=== PATIENT | female | born 1990 | race Caucasian/White ===

== ENCOUNTER 2022-04-19 20:02 | Emergency (ER) | payer SELFPAY ==
[2022-04-19 20:03] VITALS: BP 105/72; PULSE 128; RESP 16; TEMP 36.7; O2SAT 100; BMI 19.5
[2022-04-19 20:04] VITALS: BP 105/72; PULSE 128; RESP 16; TEMP 36.7; O2SAT 100
--- NOTE | 2022-04-19 20:16 | CT_ITS ---
STUDY: CT Abdomen And Pelvis W/O Contrast Injection 04/19/2022 9:45 PM REASON FOR EXAM: Female, 32 years old. ABDOMINAL PAIN Pain, neg hcg, gerneralized abd pain x 1 week, cramping TECHNIQUE: Transaxial images were obtained without oral contrast, and without intravenous contrast. Individualized dose optimization techniques were used for this CT. COMPARISON: None. FINDINGS: The visualized lung bases are unremarkable. The visualized portions of the heart are within normal limits. Unremarkable liver. Unremarkable gallbladder and extrahepatic biliary system. Unremarkable spleen. Unremarkable pancreas. Unremarkable bilateral adrenal glands. No acute findings of the right kidney. No acute findings of the left kidney. Unremarkable visualized stomach. Unremarkable small intestine. Unremarkable colon. The appendix is visualized and appears unremarkable. There are no acute findings of the abdominal aorta. Unremarkable inferior vena cava. Subcentimeter mesenteric lymph nodes. Unremarkable urinary bladder. Unremarkable abdominal wall. Unremarkable osseous structures. CT/Abdomen/Pelvis without Cont IMPRESSION: (NOT LISTED IN ORDER OF SIGNIFICANCE) There are no acute findings. Other findings as above. Electronically Signed: Marcelo Mata MD at 21:46 EDT ,
--- NOTE | 2022-04-19 20:17 | EDS_ITS ---
HPI HPI - GI History of Present Illness Chief Complaint: Abd Pain Narrative Narrative: Patient presents with her mother for periumbilical pain, nausea, and vomiting, then 4 AM, approximately 6 hours ago. She states that through the years she has had problems with abdominal pain. Her mother states that she has been diagnosed with gastritis previously. She has had upper GI studies and they say that her stomach is inflamed but do not find anything else. She began having periumbilical abdominal pain along with nausea and vomiting. She states that she vomits every few minutes without any blood in her emesis. She has not really having problems with stool, no diarrhea or constipation. No previous abdominal surgeries. No fevers but she feels chilled. No dysuria or hematuria. She states she is had to come to the emergency department previously and usu ally gets diagnosed with gastritis. She did take rectal suppositories for her nausea which has improved it moderately. PFSH PFSH Medical History no medical history Home Medications dicyclomine 20 mg PO TID PRN #20 tab 04/19/22 [Rx Last Taken Unknown] esomeprazole magnesium [Nexium] 40 mg PO DAILY #14 cap 04/19/22 [Rx Last Taken Unknown] ondansetron 4 mg PO Q6H PRN #12 tab 04/19/22 [Rx Last Taken Unknown] Allergy/AdvReac Type Severity Reaction Status Date / Time No Known Allergies Allergy Verified 04/19/22 20:02 Social History Smoking Status: Never smoker ROS ROS ED ROS Narrative Constitutional: No fever, positive chills. HEENT: No sore throat. No neck pain. No loss of vision. No rhinorrhea. Cardiovascular: No chest pain. No palpitations. No pedal edema. Respiratory: No cough, no shortness of breath. Abdominal: Periumbilical abdominal pain. Positive improving nausea. Multiple episodes of nonbloody vomiting. Genitourinary: No dysuria. No hematuria. Musculoskeletal: Diffuse myalgias. No arthralgias. Neurologic: No headaches. No dizziness. No lightheadedness. Skin: No rash. No change in color. Psychiatric: No depression. No anxiety. EXAM Physical Exam Narrative Exam Narrative: Afebrile. Vital signs noted. HEENT: Normocephalic. Atraumatic. PERRL, EOMI. Neck soft and supple. No point tenderness or step off. Cardiovascular: Regular tachycardia. No murmurs, rubs, or gallops appreciated. Respiratory: No tachypnea. Lungs clear to auscultation bilaterally. Gastrointestinal: Abdomen soft, with tenderness to palpation in periumbilical area, with normoactive bowel sounds. No rebound or guarding. Neurological: Awake. Alert. Nonfocal, nonlateralizing. Skin: No rash. Normal color. No pallor. Musculoskeletal: No pedal edema. Full range of motion extremities. Const Vital Signs: 04/19/22 20:03 04/19/22 20:04 04/19/22 22:02 Temperature 98.1 F 98.1 F Temperature Source Temporal Temporal Pulse Rate 128 H 128 H Respiratory Rate 16 16 17 Blood Pressure 105/72 105/72 Blood Pressure Mean 83 83 Pulse Ox 100 100 Oxygen Delivery Method Room Air Room Air 04/19/22 22:28 Temperature Temperature Source Pulse Rate 84 Respiratory Rate 17 Blood Pressure 122/74 H Blood Pressure Mean 90 Pulse Ox 98 Oxygen Delivery Method Room Air MDM MDM MDM Narrative Medical decision making narrative: Comprehensive work-up was pursued. She was administered Bentyl and ondansetron. She will be bolused normal saline. I do feel CT imaging is indicated. She was administered Bentyl and ondansetron. Her CBC shows normal white count of 8.4 with hemoglobin normal at 13.1, hematocrit 39.4. Normal platelet count of 265. She has slightly low potassium of 3.2 consistent with her vomiting. Creatinine normal at 0.65 with a BUN of 14. Lactic acid is normal at 1.6. test is negative. Urinalysis is negative for nitrites, positive leukocytes, but there are squamous epithelial cells. I do feel that this is a contaminant and I do not feel antibiotics are indicated. CT of the abdomen and pelvis without contrast shows no acute process, no evidence of obstruction. I do feel that she may have more of a gastritis versus duodenitis which she has been diagnosed with in the past. I will refer her to Dr. Chavarria for gastroenterology. She states she has taken Nexium before but is currently not on any medication. I wrote her prescription for Bentyl, Nexium, and Zofran. I feel she be discharged safely home with follow-up. Return instructions to the emergency department were reviewed. Disposition is discharged home in stable condition. Lab Data Attestation: I reviewed the patient's lab results. Labs: Laboratory Results - last 24 hr 04/19/22 04/19/22 04/19/22 20:15 20:15 20:15 WBC 8.4 RBC 4.49 Hgb 13.1 Hct 39.4 MCV 87.8 MCH 29.2 MCHC 33.2 RDW Std Deviation 40.7 RDW Coeff of Lulu 12.7 Plt Count 265 MPV 9.3 Immature Gran % (Auto) 0.500 Neut % (Auto) 91.0 H Lymph % (Auto) 3.6 L Cameron % (Auto) 4.1 Eos % (Auto) 0.7 Baso % (Auto) 0.1 Absolute Neuts (auto) 7.6 Absolute Lymphs (auto) 0.30 L Nucleated RBC % 0 Differential Comment SEE COMMENT Platelet Estimate ADEQUATE RBC Morphology NORM C+C Anisocytosis RARE Sodium 138 Potassium 3.2 L Chloride 103 Carbon Dioxide 28.0 Anion Gap 7 BUN 14 Creatinine 0.65 Estim Creat Clear Calc 111.22 Est GFR (MDRD) Af Amer 135 Est GFR (MDRD) Non-Af 112 BUN/Creatinine Ratio 21.5 H Glucose 127 H Lactic Acid 1.6 Calcium 8.2 L Total Bilirubin 0.40 AST 11 L ALT 14 Alkaline Phosphatase 68 Total Protein 7.6 Albumin 3.6 Globulin 4.0 Albumin/Globulin Ratio 0.9 Lipase 74 Serum , Qual Urine Color Urine Clarity Urine pH Ur Specific Russell Urine Protein Urine Glucose (UA) Urine Ketones Urine Occult Blood Urine Nitrite Urine Bilirubin Urine Urobilinogen Ur Leukocyte Esterase Urine RBC Urine WBC Ur Squamous Epith Cells Amorphous Sediment Urine Bacteria Urine Mucus 04/19/22 04/19/22 20:15 20:35 WBC RBC Hgb Hct MCV MCH MCHC RDW Std Deviation RDW Coeff of Lulu Plt Count MPV Immature Gran % (Auto) Neut % (Auto) Lymph % (Auto) Cameron % (Auto) Eos % (Auto) Baso % (Auto) Absolute Neuts (auto) Absolute Lymphs (auto) Nucleated RBC % Differential Comment Platelet Estimate RBC Morphology Anisocytosis Sodium Potassium Chloride Carbon Dioxide Anion Gap BUN Creatinine Estim Creat Clear Calc Est GFR (MDRD) Af Amer Est GFR (MDRD) Non-Af BUN/Creatinine Ratio Glucose Lactic Acid Calcium Total Bilirubin AST ALT Alkaline Phosphatase Total Protein Albumin Globulin Albumin/Globulin Ratio Lipase Serum , Qual NEGATIVE Urine Color Yellow Urine Clarity Sl. Cloudy Urine pH 6.0 Ur Specific Russell 1.020 Urine Protein 30 H Urine Glucose (UA) Normal Urine Ketones 5 H Urine Occult Blood Negative Urine Nitrite Negative Urine Bilirubin 1 H Urine Urobilinogen Normal Ur Leukocyte Esterase 100 H Urine RBC 0 SEEN Urine WBC 5-10 SEEN Ur Squamous Epith Cells 10-25 SEEN Amorphous Sediment 1+ URATE Urine Bacteria 0 SEEN Urine Mucus 0 SEEN Radiography Diagnostic Testing: Clinical Impression(s) from Imaging Studies Abdomen/Pelvis CT 04/19/22 20:16 IMPRESSION: (NOT LISTED IN ORDER OF SIGNIFICANCE) There are no acute findings. Other findings as above. Electronically Signed: Marcelo Mata MD at 21:46 EDT Reading Location ID and State: [facility] / [place] , Service support , Discharge Plan Triage Chief Complaint: Abd Pain ED Provider: Christopher Mcqueen Dx/Rx/DC Orders Clinical Impression: Nausea & vomiting, Dehydration, Abdominal pain, Gastritis Instructions: ED Dehydration (Adult), ED Gastritis (Adult), ED Vomiting (Adult) Prescriptions: New dicyclomine 20 mg tablet 20 mg PO TID PRN (Reason: abdominal pain) Qty: 20 RF: 0 ondansetron 4 mg tablet,disintegrating 4 mg PO Q6H PRN (Reason: nausea and vomiting) Qty: 12 RF: 0 esomeprazole magnesium [Nexium] 40 mg capsule,delayed release(DR/EC) 40 mg PO DAILY Qty: 14 RF: 0 Primary Care Provider: Care Physician,No Primary Referrals: Friend,Ritchie, DO [STAFF PHYSICIAN] - 3-5 Days if not improving Care Physician,No Primary [Primary Care Provider] - Disposition Disposition: Home, Self Care Discharge Date/Time: 04/19/22 22:29
[2022-04-19] MEDS: Dicyclomine 20 MG/2 ML Vial IM (20:22)
[2022-04-19] MEDS: Ondansetron 4 MG/2 ML Vial IV (20:22)
[2022-04-19] MEDS: 0.9% Normal Saline 1,000 ML 1000 ML IV (20:22)
[2022-04-19 20:38] LABS: Absolute Neutrophil Count 7.6 X10^3/uL (2.0-7.7); Basophil# 0.01 X10^3/uL; Basophil% 0.1 % (0-1); Eosinophil# 0.06 X10^3/uL; Eosinophils% 0.7 % (0-5); Hematocrit 39.4 % (37-47); Hemoglobin 13.1 g/dL (12.0-15.0); Lymphocyte % 3.6 % (19-41); Mean Corp Hgb Conc 33.2 g/dL (32-36); Mean Corpuscular Hgb 29.2 pg (27.0-32.0); Mean Corpuscular Volume 87.8 fL (81-99); Mean Platelet Vol. 9.3 fl (6.2-12.0); Monocyte# 0.34 X10^3/uL; Monocyte% 4.1 % (0-10); NRBC Flagged by Analyzer 0 % (0-5); Neutrophil # 7.64 X10^3/uL (2.7-7.7); POSITIVE DIFFERENTIAL YES; Platelet Count 265 K/mm3 (150-450); RBC Distribution Width CV 12.7 % (11.6-14.6); RBC Distribution Width SD 40.7 fl (35.1-43.9); Red Blood Count 4.49 M/mm3 (4.2-5.4); White Blood Count 8.4 K/mm3 (4.4-11.0)
[2022-04-19 20:40] LABS: Bacteria 0 SEEN /hpf (None Seen); Mucous, Urine 0 SEEN /hpf (<or=2+); Red Blood Cells-Urine 0 SEEN /hpf (0-5)
[2022-04-19 20:41] LABS: Color, Urine Yellow (Yellow); Glucose, Dipstick Normal (Normal); Ketone-Dipstick 5 mg/dl (Negative); Leukocyte Esterase-Dipstick 100 /ul (Negative); Nitrite-Dipstick Negative (Negative); Occult Blood-Urine Negative /ul (Negative); Protein-Dipstick 30 mg/dl (Negative); Urine Clarity Sl. Cloudy (Clear); Urine Urobilinogen Normal (Normal)
[2022-04-19 20:41] LABS: Differential Indicated SCAN CRITERIA MET
[2022-04-19 21:06] LABS: ALB/GLOB Ratio 0.9 RATIO (0.9-2.4); AST(SGOT) 11 U/L (15-37); Alanine Aminotransfer ALT/SGPT 14 U/L (13-56); Albumin, Serum 3.6 g/dL (3.2-5.0); Alkaline Phosphatase 68 U/L (45-117); Anion Gap 7 (5-15); BUN 14 mg/dL (7-18); BUN/Creat Ratio 21.5 RATIO (10-20); Calcium,Total 8.2 mg/dL (8.5-10.1); Chloride 103 mmol/L (98-107); Creatinine, Serum 0.65 mg/dL (0.55-1.02); EST Glomerular Filtration Rate 112 mL/min (>60); Est Glom Filt Rate - Afr Amer 135 mL/min (>60); Estimated Creatinine Clearance 111.22 ml/min; Glucose 127 mg/dL (74-106); Lipase 74 U/L (73-393); Potassium 3.2 mmol/L (3.5-5.1); Protein, Total 7.6 g/dL (6.4-8.2); Sodium Level 138 mmol/L (136-145)
[2022-04-19 21:07] LABS: Anisocytosis RARE; Lactic Acid 1.6 mmol/L (0.4-1.9); Platelet Estimate ADEQUATE (ADEQ); Red Cell Morphology NORM C+C NORMAL (NORM C&C)
[2022-04-19 21:08] LABS: Urine Bilirubin Dipstick 1 mg/dL (Negative)
[2022-04-19 21:16] LABS: White Blood Cells 5-10 SEEN /hpf (0-5)
[2022-04-19 21:17] LABS: Amorphous Sediment 1+ URATE; Squamous Epithelial Cells - UA 10-25 SEEN /hpf (5-10)
[2022-04-19 21:22] LABS: Internal QC Validated? YES +Cl - CLEAR BKGD; Pregnancy, Serum, hCG Quali. NEGATIVE Negative
[2022-04-19 22:02] VITALS: RESP 17
[2022-04-19] MEDS: Famotidine 200 MG/20 ML MDV 20 MG in 0.9% Normal Saline (Pres. free 8 ML 300 MG IV (22:22)
[2022-04-19 22:28] VITALS: BP 122/74; PULSE 84; RESP 17; O2SAT 98
== END 2022-04-19 22:29 | disposition home or self-care (01) ==
PROVIDERS: Emergency Provider Emergency Medicine; Visit Provider Emergency Medicine
DX: K29.70 Gastritis, unspecified, without bleeding (principal); E86.0 Dehydration
CPT/HCPCS: 74176; 80053; 81001; 83605; 83690; 84703; 85025; 96361; 96372; 96374; 96375; 99284; J7030; A4216; J2405; J3490